=== PATIENT | male | born 1965 | race Caucasian/White ===

== ENCOUNTER 2016-03-09 21:45 | Inpatient (IN) ==
--- NOTE | 2016-03-09 22:09 | Emergency Department Note ---
Disposition Clinical Impression: Acute psychosis Disposition: Admitted As Inpatient Condition: Fair Psych HPI - General Chief Complaint: ED Psychiatric Symptoms Stated Complaint: Psych/SI Time Seen by Provider: 03/09/16 22:08 Source: patient, other Mode of arrival: ambulatory Limitations: altered mental status Nursing Notes Reviewed: Yes Vital Signs Reviewed: Yes - History of Present Illness HPI Narrative: As to the emergency department with complaints of suicidal ideation, hearing voices. He states that he "has a voice inside his head that he says is doing now,, he has been there for a very long time, and he has a little green man." He states "that when Duran talks to him excessively he eventually gets very angry and Duran's tells him to not only hurt himself but also to hurt other people." His mother is present she states that this is been ongoing since 1995 when he was incarcerated for 11 years in shelter and she would receive letters from him telling her about Duran and all the things that Duran was telling the patient today. He apparently has been on medication in the past that did seem to help the voice not talk to him as much, however he has not been on any psychiatric medications for the last 2-3 years. He states that he just was to get better but he also does not want stay in the hospital and he wants to go home. Mother is insistent that he stay here and get better, he does not live with her at this time. Does have a history of Pt complaint: suicidal ideation, feels depressed If medical clearance, reason: psychiatric condition Onset (ago): unknown Duration: changing over time, getting worse Improves with: medication Worsens with: none Context: recent drug abuse, not taking psychiatric medications Alleged intoxication: No Associated Psychiatric Symptoms: depression, suicidal ideation, homicidal ideation, auditory hallucinations Associated symptoms: Reports: denies other symptoms Traumatic symptoms: denies traumatic injury Treatments prior to arrival: none Self harm or harm to others: admits thoughts of self harm, denies having a plan - Related Data Previous Rx's Medication Instructions Recorded Amoxicillin 875 mg PO BID #20 tablet 03/02/16 Ibuprofen [Motrin] 800 mg PO Q8HR PRN #40 tablet 03/02/16 Ondansetron [Zofran] 8 mg PO TID PRN #10 tablet 03/02/16 Allergies Allergy/AdvReac Type Severity Reaction Status Date / Time codeine AdvReac Nausea Verified 03/09/16 21:48 All systems ED: reviewed and negative except as stated. Constitutional: Denies: fever, chills, weakness, weight change Eyes: Denies: eye pain, eye discharge, vision change ENT ED: Denies: ear pain, throat pain, dental pain, hearing loss, epistaxis, congestion, dysphagia Cardiovascular: Denies: chest pain, palpitations, dyspnea on exertion, edema, syncope Past Medical History - Past Medical History Medical history: Reports: asthma, seizures, other Surgical history: Reports: other Psychiatric history: Reports: anxiety, bipolar, depression, prior suicide attempt, schizophrenia, previous psychiatric hospitalization - Social History Smoking Status: Current every day smoker Smokeless Tobacco Status: No Alcohol use: Reports: none Drug use: Reports: marijuana Physical Exam - General Limitations: no limitations General appearance: alert - Head Head exam: atraumatic, normocephalic, normal inspection - Eye Eye exam: Present: normal appearance, PERRL, EOMI - ENT ENT exam: normal exam, normal oropharynx, mucous membranes moist - Neck Neck exam: Present: normal inspection, full ROM, trachea midline - Chest Chest inspection: Present: normal inspection, symmetric chest wall rise - Respiratory Respiratory exam: Present: normal lung sounds bilaterally - Cardiovascular Cardiovascular exam: Present: regular rate, normal rhythm, normal heart sounds - Abdominal Exam Abdominal exam: Present: soft, Non-Tender. Absent: tenderness, distention, guarding, rebound, rigidity - Extremities Exam Extremities exam: Present: normal inspection, full ROM. Absent: tenderness, pedal edema - Back Exam Back exam: Present: normal inspection, full ROM. Absent: tenderness - Neurological Exam Neurological exam: Present: alert, oriented X3 - Psychiatric Psychiatric exam: Present: depressed, suicidal ideation - Expanded Psychiatric Exam Expanded psych exam: Present: auditory hallucinations - Skin Skin exam: Present: warm, dry, intact, normal color Course - Reevaluation(s) Reevaluation #1: Report to Lisandra Howell PA-C he will assume care. Time: 06:23 Vital Signs Temperature 98.8 F 03/09/16 21:48 Pulse Rate 75 03/09/16 21:48 Respiratory Rate 20 03/09/16 21:48 Blood Pressure 146/79 03/09/16 21:48 O2 Sat by Pulse Oximetry 95 03/09/16 21:48 Temperature 99 F 03/12/16 08:16 Pulse Rate 93 03/12/16 08:16 Respiratory Rate 18 03/12/16 08:16 Blood Pressure 143/85 03/12/16 08:16 O2 Sat by Pulse Oximetry 97 03/10/16 05:41 Oxygen Delivery Oxygen Delivery Room Air Psych - Lab Data Result diagrams: 03/09/16 22:20 03/09/16 22:20 Lab Results 03/09/16 03/09/16 03/09/16 Range/Units 22:13 22:13 22:20 WBC 8.8 (4.3-11.1) K/mcL RBC 4.85 (4.19-5.50) M/mcL Hgb 15.2 (12.9-16.9) g/dL Hct 43.8 (37.5-50.1) % MCV 90.3 (83.0-100.0) fL MCH 31.3 (28.0-33.3) pg MCHC 34.7 (31.6-35.5) g/dL RDW 12.9 (11.5-14.5) % Plt Count 224 (140-400) K/mcL MPV 9.3 L (9.4-12.4) fL Immature Gran % 0.3 (0-4) % Seg Neutrophils % 74.3 % Lymphocytes % 15.3 % Monocytes % 7.1 % Eosinophils % 2.4 % Basophils % 0.6 % Neutrophils # 6.6 (1.6-8.9) K/mcL Lymphocytes # 1.4 (0.6-4.6) K/mcL Monocytes # 0.6 (0.0-1.3) K/mcL Eosinophils # 0.2 (0.0-0.6) K/mcL Basophils # 0.1 (0.0-0.2) K/mcL Sodium (136-145) mEq/L Potassium (3.5-4.5) mEq/L Chloride (98-109) mEq/L Carbon Dioxide (19-29) mEq/L BUN (8-26) mg/dL Creatinine (0.72-1.25) mg/dL Est GFR ( Amer) (> 60) Est GFR (Non-Af Amer) (> 60) BUN/Creatinine Ratio (6-26) Glucose (70-99) mg/dL Calculated Osmolality (280-300) Calcium (8.6-10.8) mg/dL Urine Color Yellow (Yellow) Urine Clarity Clear (Clear) Urine pH 5.5 (5.0-8.0) pH Units Ur Specific [place] 1.027 H (1.010-1.025) Urine Protein Negative (Neg-Trace) mg/dL Urine Glucose (UA) Normal (Normal) mg/dL Urine Ketones Negative (Negative) mg/dL Urine Blood Moderate H (Negative) Urine Nitrite Negative (Negative) Urine Bilirubin Negative (Negative) Urine Urobilinogen Normal (Normal) mg/dL Ur Leukocyte Esterase Negative (Negative) Urine Microscopic RBC 15-30 H (0-3) per hpf Urine Microscopic WBC 0-3 (0-3) per hpf Ur Squamous Epith Cells Moderate H (None-Few) per lpf Urine Bacteria None Seen (None-Few) per hpf Hyaline Casts None Seen (None-Few) per lpf Salicylates (15-30) mg/dL Urine Opiates Screen Negative (Jmkppq=391) ng/mL Acetaminophen (10-30) mcg/mL Ur Barbiturates Screen Negative (Vtrrdi=476) ng/mL Ur Phencyclidine Scrn Negative (Cutoff=25) ng/mL Ur Amphetamines Screen Negative (Olujvu=7789) ng/mL U Benzodiazepines Scrn Negative (Imxzrr=440) ng/mL Urine Cocaine Screen Negative (Cutoff= 300) ng/mL U Marijuana (THC) Screen Positive H (Cutoff = 50) ng/mL Ethyl Alcohol (0-10) mg/dL 03/09/16 Range/Units 22:20 WBC (4.3-11.1) K/mcL RBC (4.19-5.50) M/mcL Hgb (12.9-16.9) g/dL Hct (37.5-50.1) % MCV (83.0-100.0) fL MCH (28.0-33.3) pg MCHC (31.6-35.5) g/dL RDW (11.5-14.5) % Plt Count (140-400) K/mcL MPV (9.4-12.4) fL Immature Gran % (0-4) % Seg Neutrophils % % Lymphocytes % % Monocytes % % Eosinophils % % Basophils % % Neutrophils # (1.6-8.9) K/mcL Lymphocytes # (0.6-4.6) K/mcL Monocytes # (0.0-1.3) K/mcL Eosinophils # (0.0-0.6) K/mcL Basophils # (0.0-0.2) K/mcL Sodium 138 (136-145) mEq/L Potassium 4.0 (3.5-4.5) mEq/L Chloride 109 (98-109) mEq/L Carbon Dioxide 20 (19-29) mEq/L BUN 12 (8-26) mg/dL Creatinine 0.82 (0.72-1.25) mg/dL Est GFR ( Amer) > 60 (> 60) Est GFR (Non-Af Amer) > 60 (> 60) BUN/Creatinine Ratio 15 (6-26) Glucose 115 H (70-99) mg/dL Calculated Osmolality 287 (280-300) Calcium 8.7 (8.6-10.8) mg/dL Urine Color (Yellow) Urine Clarity (Clear) Urine pH (5.0-8.0) pH Units Ur Specific [place] (1.010-1.025) Urine Protein (Neg-Trace) mg/dL Urine Glucose (UA) (Normal) mg/dL Urine Ketones (Negative) mg/dL Urine Blood (Negative) Urine Nitrite (Negative) Urine Bilirubin (Negative) Urine Urobilinogen (Normal) mg/dL Ur Leukocyte Esterase (Negative) Urine Microscopic RBC (0-3) per hpf Urine Microscopic WBC (0-3) per hpf Ur Squamous Epith Cells (None-Few) per lpf Urine Bacteria (None-Few) per hpf Hyaline Casts (None-Few) per lpf Salicylates < 5.0 L (15-30) mg/dL Urine Opiates Screen (Avdlhn=086) ng/mL Acetaminophen < 1.0 L (10-30) mcg/mL Ur Barbiturates Screen (Ecpfne=201) ng/mL Ur Phencyclidine Scrn (Cutoff=25) ng/mL Ur Amphetamines Screen (Lkmzna=0901) ng/mL U Benzodiazepines Scrn (Ybrwno=889) ng/mL Urine Cocaine Screen (Cutoff= 300) ng/mL U Marijuana (THC) Screen (Cutoff = 50) ng/mL Ethyl Alcohol < 10 (0-10) mg/dL Psychiatric Medical Clearance - Medical Clearance Checklist Does the patient have a NEW psychiatric condition?: No Any abnormalities indicating possible medical illness?: No Any history of medical issues?: No Medical History: No Social History Section defined Any abnormal vital signs prior to transfer?: No Current Vitals: Last Vital Signs Temp 99 F 03/12/16 08:16 Pulse 93 03/12/16 08:16 Resp 18 03/12/16 08:16 BP 143/85 03/12/16 08:16 Pulse Ox 97 03/10/16 05:41 Is the patient intoxicated or cognitively impaired?: No Any abnormalities on the physical exam?: No Any abnormal labs?: No Abnormal Labs: Abnormal lab results MPV 9.3 fL (9.4-12.4) L 03/09/16 22:20 Glucose 115 mg/dL (70-99) H 03/09/16 22:20 Ur Specific [place] 1.027 (1.010-1.025) H 03/09/16 22:13 Urine Blood Moderate (Negative) H 03/09/16 22:13 Urine Microscopic RBC 15-30 per hpf (0-3) H 03/09/16 22:13 Ur Squamous Epith Cells Moderate per lpf (None-Few) H 03/09/16 22:13 Salicylates < 5.0 mg/dL (15-30) L 03/09/16 22:20 Acetaminophen < 1.0 mcg/mL (10-30) L 03/09/16 22:20 U Marijuana (THC) Screen Positive ng/mL (Cutoff = 50) H 03/09/16 22:13 Does the patient require durable medical equiptment?: No Is the patient ambulatory?: Yes Is the patient a fall risk?: No Has the patient been medically cleared?: Yes Any acute medical condition require Tx prior to transfer?: No Statement of Medical Clearance: I have evaluated the patient, reviewed diagnostic information, and certify that the patient's medical condition is sufficiently stable that transfer to the psychiatric unit does not pose a significant risk of deterioration. Alicia - Alicia Background: Presenting Complaint, Relevant PMH, Meds, & Allergies Assessment: Vital Signs, Course and respsone to treatment, Exam Concerns, Patient/Family Expectation S.B.AManish Report Given to: CLARITA Barrios Repor Time: 06:24 Attestation Statement - Attestation Attestation: I, Arron Rowley MD, personally performed a history and physical exam of the patient and discussed their management with the midlevel provicer, PAC/OBJECT ORIENTED DEVELOPER. I reviewed the midlevel provider's note and agree with the documented findings, medical decision making, and plan of care. 50-year-old male presenting to the emergency department with a complaint of suicidal ideations. He also complains of auditory hallucinations. This is a chronic problem but acutely worse. On examination patient is a well-developed well-nourished male in no acute distress. He is alert and oriented. There is no cyanosis or diaphoresis. Breath sounds are clear and equal bilaterally. Heart regular rate and rhythm. Abdomen soft and nontender with normal bowel sounds. No gross focal neurological deficits. Labs reviewed and patient medically cleared for psychiatric evaluation. Patient was evaluated by the [address] psych service and they are working on bed placement for this patient as they currently have no beds at this facility.
[2016-03-09 22:27] LABS: Basophils # 0.1 K/mcL (0.0-0.2); Basophils % 0.6 %; Eosinophils # 0.2 K/mcL (0.0-0.6); Eosinophils % 2.4 %; Hematocrit 43.8 % (37.5-50.1); Hemoglobin 15.2 g/dL (12.9-16.9); Immature Granulocytes % 0.3 % (0-4); Lymphocytes # 1.4 K/mcL (0.6-4.6); Lymphocytes % 15.3 %; Mean Corpuscular HGB Conc 34.7 g/dL (31.6-35.5); Mean Corpuscular Hemoglobin 31.3 pg (28.0-33.3); Mean Corpuscular Volume 90.3 fL (83.0-100.0); Mean Platelet Volume 9.3 fL (9.4-12.4); Monocytes # 0.6 K/mcL (0.0-1.3); Monocytes % 7.1 %; Neutrophils # 6.6 K/mcL (1.6-8.9); Platelet Count 224 K/mcL (140-400); Red Blood Count 4.85 M/mcL (4.19-5.50); Red Cell Distribution Width 12.9 % (11.5-14.5); Segmented Neutrophils % 74.3 %
[2016-03-09 22:30] LABS: Bilirubin,Urine Negative (Negative); Blood,Urine Moderate (Negative); Clarity,Urine Clear (Clear); Color,Urine Yellow (Yellow); Glucose,Urine (UA) Normal (Normal); Ketones,Urine Negative (Negative); Leukocyte Esterase,Urine Negative (Negative); Nitrite,Urine Negative (Negative); PH,Urine 5.5 pH Units (5.0-8.0); Protein,Urine Negative (Neg-Trace); Specific Gravity,Urine 1.027 (1.010-1.025); Urobilinogen,Urine Normal (Normal)
[2016-03-09 22:32] LABS: Bacteria,Urine None Seen per hpf (None-Few); Hyaline Casts,Urine None Seen per lpf (None-Few); RBC,Urine 15-30 per hpf (0-3); Squamous Epithelial Cell,Urine Moderate per lpf (None-Few); WBC,Urine 0-3 per hpf (0-3)
[2016-03-09 22:33] LABS: Amphetamine Screen,Urine Negative ng/mL (Cutoff=1000); Barbiturate Screen,Urine Negative ng/mL (Cutoff=200); Benzodiazepines Screen,Urine Negative ng/mL (Cutoff=200); Cannabinoid Screen,Urine Positive ng/mL (Cutoff = 50); Cocaine Screen,Urine Negative ng/mL (Cutoff= 300); Opiate Screen,Urine Negative ng/mL (Cutoff=300); Phencyclidine Screen,Urine Negative ng/mL (Cutoff=25)
[2016-03-09 22:41] LABS: BUN/Creatinine Ratio 15 (6-26); Blood Urea Nitrogen 12 mg/dL (8-26); Calcium 8.7 mg/dL (8.6-10.8); Carbon Dioxide 20 mEq/L (19-29); Chloride 109 mEq/L (98-109); Glucose 115 mg/dL (70-99); Osmolality,Calculated 287 (280-300); Sodium 138 mEq/L (136-145); eGFR For African Americans > 60 (> 60); eGFR For Non-African Americans > 60 (> 60)
[2016-03-09 22:42] LABS: Acetaminophen < 1.0 mcg/mL (10-30); Ethanol < 10 mg/dL (0-10); Salicylate < 5.0 mg/dL (15-30)
[2016-03-10] MEDS ORDERED: Ibuprofen 600 MG TABLET PO ONE ×2 (04:03→08:11)
[2016-03-10] MEDS ORDERED: *HR* LORazepam 0.5 MG TABLET PO ONE (04:04)
[2016-03-10] MEDS ORDERED: Nicotine 7 MG PATCH.TD24 TD STA (04:14)
[2016-03-10] MEDS ORDERED: *HR* LORazepam 1 MG TABLET PO ONE ×3 (04:43→12:13)
--- NOTE | 2016-03-10 08:16 | Emergency Department Note ---
Disposition Clinical Impression: Acute psychosis Disposition: Admitted As Inpatient Condition: Fair Time of Disposition: 12:15 Psych HPI - General Chief Complaint: ED Psychiatric Symptoms Stated Complaint: Psych/SI Time Seen by Provider: 03/10/16 08:11 Source: patient, other Mode of arrival: ambulatory Limitations: no limitations Nursing Notes Reviewed: Yes Vital Signs Reviewed: Yes - History of Present Illness Duration: changing over time, getting worse Improves with: medication Worsens with: none Associated symptoms: Reports: denies other symptoms Treatments prior to arrival: none - Related Data Previous Rx's Medication Instructions Recorded Amoxicillin 875 mg PO BID #20 tablet 03/02/16 Ibuprofen [Motrin] 800 mg PO Q8HR PRN #40 tablet 03/02/16 Ondansetron [Zofran] 8 mg PO TID PRN #10 tablet 03/02/16 Allergies Allergy/AdvReac Type Severity Reaction Status Date / Time codeine AdvReac Nausea Verified 03/09/16 21:48 Constitutional: Denies: fever, chills, weakness, weight change Eyes: Denies: eye pain, eye discharge, vision change ENT ED: Denies: ear pain, throat pain, dental pain, hearing loss, epistaxis, congestion, dysphagia Cardiovascular: Denies: chest pain, palpitations, dyspnea on exertion, edema, syncope Past Medical History - Past Medical History Medical history: Reports: asthma, seizures, other Surgical history: Reports: other Psychiatric history: Reports: anxiety, bipolar, depression, prior suicide attempt, schizophrenia, previous psychiatric hospitalization - Social History Smoking Status: Current every day smoker Smokeless Tobacco Status: No Alcohol use: Reports: none Drug use: Reports: marijuana Physical Exam - General Limitations: no limitations General appearance: alert Course Course Narrative: Patient was admitted here for psychiatric observation. 1430 - Reevaluation(s) Reevaluation #1: Patient currently resting comfortably. Awaiting placement. Patient is requesting ibuprofen for pain. Medication has been ordered. Time: 08:15 Vital Signs Temperature 98.8 F 03/09/16 21:48 Pulse Rate 75 03/09/16 21:48 Respiratory Rate 20 03/09/16 21:48 Blood Pressure 146/79 03/09/16 21:48 O2 Sat by Pulse Oximetry 95 03/09/16 21:48 Temperature 97.4 F L 03/10/16 21:00 Pulse Rate 85 03/10/16 21:00 Respiratory Rate 18 03/10/16 21:00 Blood Pressure 133/82 03/10/16 21:00 O2 Sat by Pulse Oximetry 97 03/10/16 05:41 Oxygen Delivery Oxygen Delivery Room Air Psych - Lab Data Result diagrams: 03/09/16 22:20 03/09/16 22:20 Lab Results 03/09/16 03/09/16 03/09/16 Range/Units 22:13 22:13 22:20 WBC 8.8 (4.3-11.1) K/mcL RBC 4.85 (4.19-5.50) M/mcL Hgb 15.2 (12.9-16.9) g/dL Hct 43.8 (37.5-50.1) % MCV 90.3 (83.0-100.0) fL MCH 31.3 (28.0-33.3) pg MCHC 34.7 (31.6-35.5) g/dL RDW 12.9 (11.5-14.5) % Plt Count 224 (140-400) K/mcL MPV 9.3 L (9.4-12.4) fL Immature Gran % 0.3 (0-4) % Seg Neutrophils % 74.3 % Lymphocytes % 15.3 % Monocytes % 7.1 % Eosinophils % 2.4 % Basophils % 0.6 % Neutrophils # 6.6 (1.6-8.9) K/mcL Lymphocytes # 1.4 (0.6-4.6) K/mcL Monocytes # 0.6 (0.0-1.3) K/mcL Eosinophils # 0.2 (0.0-0.6) K/mcL Basophils # 0.1 (0.0-0.2) K/mcL Sodium (136-145) mEq/L Potassium (3.5-4.5) mEq/L Chloride (98-109) mEq/L Carbon Dioxide (19-29) mEq/L BUN (8-26) mg/dL Creatinine (0.72-1.25) mg/dL Est GFR ( Amer) (> 60) Est GFR (Non-Af Amer) (> 60) BUN/Creatinine Ratio (6-26) Glucose (70-99) mg/dL Calculated Osmolality (280-300) Calcium (8.6-10.8) mg/dL Urine Color Yellow (Yellow) Urine Clarity Clear (Clear) Urine pH 5.5 (5.0-8.0) pH Units Ur Specific [place] 1.027 H (1.010-1.025) Urine Protein Negative (Neg-Trace) mg/dL Urine Glucose (UA) Normal (Normal) mg/dL Urine Ketones Negative (Negative) mg/dL Urine Blood Moderate H (Negative) Urine Nitrite Negative (Negative) Urine Bilirubin Negative (Negative) Urine Urobilinogen Normal (Normal) mg/dL Ur Leukocyte Esterase Negative (Negative) Urine Microscopic RBC 15-30 H (0-3) per hpf Urine Microscopic WBC 0-3 (0-3) per hpf Ur Squamous Epith Cells Moderate H (None-Few) per lpf Urine Bacteria None Seen (None-Few) per hpf Hyaline Casts None Seen (None-Few) per lpf Salicylates (15-30) mg/dL Urine Opiates Screen Negative (Sjrsfx=102) ng/mL Acetaminophen (10-30) mcg/mL Ur Barbiturates Screen Negative (Kvdorp=398) ng/mL Ur Phencyclidine Scrn Negative (Cutoff=25) ng/mL Ur Amphetamines Screen Negative (Ttnbws=8684) ng/mL U Benzodiazepines Scrn Negative (Ckckmd=368) ng/mL Urine Cocaine Screen Negative (Cutoff= 300) ng/mL U Marijuana (THC) Screen Positive H (Cutoff = 50) ng/mL Ethyl Alcohol (0-10) mg/dL 03/09/16 Range/Units 22:20 WBC (4.3-11.1) K/mcL RBC (4.19-5.50) M/mcL Hgb (12.9-16.9) g/dL Hct (37.5-50.1) % MCV (83.0-100.0) fL MCH (28.0-33.3) pg MCHC (31.6-35.5) g/dL RDW (11.5-14.5) % Plt Count (140-400) K/mcL MPV (9.4-12.4) fL Immature Gran % (0-4) % Seg Neutrophils % % Lymphocytes % % Monocytes % % Eosinophils % % Basophils % % Neutrophils # (1.6-8.9) K/mcL Lymphocytes # (0.6-4.6) K/mcL Monocytes # (0.0-1.3) K/mcL Eosinophils # (0.0-0.6) K/mcL Basophils # (0.0-0.2) K/mcL Sodium 138 (136-145) mEq/L Potassium 4.0 (3.5-4.5) mEq/L Chloride 109 (98-109) mEq/L Carbon Dioxide 20 (19-29) mEq/L BUN 12 (8-26) mg/dL Creatinine 0.82 (0.72-1.25) mg/dL Est GFR ( Amer) > 60 (> 60) Est GFR (Non-Af Amer) > 60 (> 60) BUN/Creatinine Ratio 15 (6-26) Glucose 115 H (70-99) mg/dL Calculated Osmolality 287 (280-300) Calcium 8.7 (8.6-10.8) mg/dL Urine Color (Yellow) Urine Clarity (Clear) Urine pH (5.0-8.0) pH Units Ur Specific [place] (1.010-1.025) Urine Protein (Neg-Trace) mg/dL Urine Glucose (UA) (Normal) mg/dL Urine Ketones (Negative) mg/dL Urine Blood (Negative) Urine Nitrite (Negative) Urine Bilirubin (Negative) Urine Urobilinogen (Normal) mg/dL Ur Leukocyte Esterase (Negative) Urine Microscopic RBC (0-3) per hpf Urine Microscopic WBC (0-3) per hpf Ur Squamous Epith Cells (None-Few) per lpf Urine Bacteria (None-Few) per hpf Hyaline Casts (None-Few) per lpf Salicylates < 5.0 L (15-30) mg/dL Urine Opiates Screen (Odbayl=211) ng/mL Acetaminophen < 1.0 L (10-30) mcg/mL Ur Barbiturates Screen (Lopuis=180) ng/mL Ur Phencyclidine Scrn (Cutoff=25) ng/mL Ur Amphetamines Screen (Azbkuc=6544) ng/mL U Benzodiazepines Scrn (Dankxp=160) ng/mL Urine Cocaine Screen (Cutoff= 300) ng/mL U Marijuana (THC) Screen (Cutoff = 50) ng/mL Ethyl Alcohol < 10 (0-10) mg/dL Psychiatric Medical Clearance - Medical Clearance Checklist Medical History: No Social History Section defined Current Vitals: Last Vital Signs Temp 97.4 F L 03/10/16 21:00 Pulse 85 03/10/16 21:00 Resp 18 03/10/16 21:00 BP 133/82 03/10/16 21:00 Pulse Ox 97 03/10/16 05:41 Abnormal Labs: Abnormal lab results MPV 9.3 fL (9.4-12.4) L 03/09/16 22:20 Glucose 115 mg/dL (70-99) H 03/09/16 22:20 Ur Specific [place] 1.027 (1.010-1.025) H 03/09/16 22:13 Urine Blood Moderate (Negative) H 03/09/16 22:13 Urine Microscopic RBC 15-30 per hpf (0-3) H 03/09/16 22:13 Ur Squamous Epith Cells Moderate per lpf (None-Few) H 03/09/16 22:13 Salicylates < 5.0 mg/dL (15-30) L 03/09/16 22:20 Acetaminophen < 1.0 mcg/mL (10-30) L 03/09/16 22:20 U Marijuana (THC) Screen Positive ng/mL (Cutoff = 50) H 03/09/16 22:13 Attestation Statement - Attestation Attestation: IArron MD, personally performed a history and physical exam of the patient and discussed their management with the midlevel provicer, PAC/RACK WORKER. I reviewed the midlevel provider's note and agree with the documented findings, medical decision making, and plan of care. Arron Rivas MD, personally performed a history and physical exam of the patient and discussed their management with the midlevel provicer, PAC/RACK WORKER. I reviewed the midlevel provider's note and agree with the documented findings, medical decision making, and plan of care. 50-year-old male presenting to the emergency department with a complaint of suicidal ideations. He also complains of auditory hallucinations. This is a chronic problem but acutely worse. On examination patient is a well-developed well-nourished male in no acute distress. He is alert and oriented. There is no cyanosis or diaphoresis. Breath sounds are clear and equal bilaterally. Heart regular rate and rhythm. Abdomen soft and nontender with normal bowel sounds. No gross focal neurological deficits. Labs reviewed and patient medically cleared for psychiatric evaluation. Patient was evaluated by the [address] service and they are working on bed placement for this patient as they currently have no beds at this facility.
[2016-03-10] MEDS ORDERED: Nicotine 7 MG PATCH.TD24 TD SCH (09:00)
[2016-03-10] MEDS ORDERED: Nicotine 21 MG PATCH.TD24 TD SCH (11:30)
[2016-03-10] MEDS ORDERED: Nicotine 21 MG PATCH.TD24 TD STA (11:53)
[2016-03-10] MEDS ORDERED: Gabapentin 300 MG CAPSULE PO ONE (12:17)
[2016-03-10] MEDS ORDERED: hydrOXYzine pamoate 25 MG CAPSULE PO PRN (15:32)
[2016-03-10] MEDS ORDERED: Haloperidol Lactate 5 MG/ML VIAL IM PRN (15:32)
[2016-03-10] MEDS ORDERED: *HR* LORazepam 2 MG/ML VIAL IM PRN (15:32)
[2016-03-10] MEDS ORDERED: *HR* LORazepam 1 MG TABLET PO PRN (15:32)
[2016-03-10] MEDS ORDERED: traZODone 50 MG TABLET PO PRN (15:32)
[2016-03-10] MEDS ORDERED: Ondansetron ODT 4 MG TAB.RAPDIS PO PRN (15:36)
[2016-03-10] MEDS: AMOXICILLIN 875 MG PO SCH (20:56)
[2016-03-10] MEDS: lamoTRIgine 100 MG TABLET PO SCH (20:57)
[2016-03-11] MEDS: Nicotine 21 MG PATCH.TD24 TD SCH (08:55)
[2016-03-11] MEDS: lamoTRIgine 100 MG TABLET PO SCH ×2 (08:55→20:26)
[2016-03-11] MEDS: AMOXICILLIN 875 MG PO SCH ×2 (08:56→20:27)
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
[2016-03-12] MEDS: Nicotine 21 MG PATCH.TD24 TD SCH (08:35)
[2016-03-12] MEDS: lamoTRIgine 100 MG TABLET PO SCH ×2 (08:36→22:03)
[2016-03-12] MEDS: Amoxicillin 500 MG CAPSULE PO SCH ×2 (08:36→22:03)
--- NOTE | 2016-03-12 11:03 | Psychiatry Progress Note ---
Date of Encounter: 03/12/16 Time of Encounter: 11:09 Subjective Interval history: Patient is here for follow-up. Mihir reports he has been cooperative and compliant with medication he was started on Seroquel in addition to Lamictal he slept well last night and feeling much better. He reports voices are very weak and infrequent. 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 Denies suicidal ideation. Review of Systems Psychiatric: Reports: suicidal ideation, visual hallucinations Objective: Exam Patient orientation: Yes Person, Yes Time, Yes Place Level of alertness: Sedated Patient appearance: Appropriate, Well Groomed Behavior: calm, cooperative, nervous Eye contact: Maintains Eye Contact Mood description: Depressed, Anxious Affect description: blunted, flat, dysphoric, anxious Speech pattern: Normal rate, Clear, Coherent, Limited Speech volume: Normal Thought process: Logical, Linear, Goal Oriented Thought content: Yes Suicidal ideation, Yes Ideas of reference, Yes Preoccupation Perceptual disturbances: Yes Auditory hallucinations, Yes Visual hallucinations Judgment: Fair Insight: Minimal Results - Vital Signs Vital Signs: Temp Pulse Resp BP Pulse Ox 99 F 93 18 143/85 97 03/12/16 08:16 03/12/16 08:16 03/12/16 08:16 03/12/16 08:16 03/10/16 05:41 Assessment and Plan (1) Acute psychosis Current visit: Yes Status: Acute Plan: Continue hospitalization, Close observation, Suicide Precautions per unit protocol, Encourage participation in unit milieu, Group Therapy, Monitor sleep, Monitor appetite Risks, benefits, side effects, alternatives discussed w/pt: Yes Patient agreeable to treatment: Yes Consult Discharge Plan - Plan Referrals: NO,PCP [Primary Care Provider] -
[2016-03-12] MEDS: Ibuprofen 800 MG TABLET PO PRN (11:19)
[2016-03-13] MEDS: Nicotine 21 MG PATCH.TD24 TD SCH (08:23)
[2016-03-13] MEDS: lamoTRIgine 100 MG TABLET PO SCH ×2 (08:24→20:42)
[2016-03-13] MEDS: Amoxicillin 500 MG CAPSULE PO SCH ×2 (08:24→20:42)
--- NOTE | 2016-03-13 15:57 | Psychiatry Progress Note ---
Date of Encounter: 03/13/16 Time of Encounter: 15:54 Subjective Interval history: Patient seen for follow-up. Staff report he is compliant with medication not agitated and anxious to go home. community center worker is looking into his discharge plans and contacting the family. Review of Systems Psychiatric: Reports: suicidal ideation, visual hallucinations Objective: Exam Patient orientation: Yes Person, Yes Time, Yes Place Level of alertness: Sedated Patient appearance: Appropriate, Well Groomed Behavior: calm, cooperative, nervous Psychomotor activity: Slowed Eye contact: Maintains Eye Contact Mood description: Depressed, Anxious Affect description: blunted, flat, dysphoric, anxious Speech pattern: Normal rate, Clear, Coherent, Limited Speech volume: Normal Thought process: Logical, Linear, Goal Oriented Thought content: Yes Suicidal ideation, Yes Ideas of reference, Yes Preoccupation Perceptual disturbances: Yes Auditory hallucinations, Yes Visual hallucinations Judgment: Fair Insight: Minimal Results - Vital Signs Vital Signs: Temp Pulse Resp BP Pulse Ox 99.2 F 98 18 132/87 97 03/13/16 09:00 03/13/16 09:00 03/13/16 09:00 03/13/16 09:00 03/10/16 05:41 Assessment and Plan (1) Acute psychosis Current visit: Yes Status: Acute Plan: Continue hospitalization, Close observation, Suicide Precautions per unit protocol, Encourage participation in unit milieu, Group Therapy, Monitor sleep, Monitor appetite Risks, benefits, side effects, alternatives discussed w/pt: Yes Patient agreeable to treatment: Yes Consult Discharge Plan - Plan Referrals: [facility] [Outside] - 03/27/16 1:00 pm (The above appointment is with Monik Sabillon. When you come to your first appointment, you will have an orientation to the agency and you will meet with a counselor. Please bring the following with you to your first visit to the clinic: 1) proof of household income (two consecutive pay stubs, social security award letter, bank statement, statement letter from [facility], child support statement, IRS 1040 or W2 form, or a statement from the person who financially supports you stating they help provide for your basic needs), 2) proof of residency (drivers license , a piece of mail showing your address, a statement from person you live with verifying you live at their address), 3) your social security number, and 4) your insurance card (if you have commercial insurance you must call to obtain a prior authorization number before you arrive to your first appointment). If you do not bring these items, you will not be seen.) Shay Vadlez PAC [Physician Field Gauger] - 03/22/16 11:15 am (The above appointment is with MIKY Pimentel at [facility]. This appointment is to establish you with a primary care provider. If you have needs related to psychiatric medication and/or Vivitrol, you will be assessed for these as well. Please arrive 15 minutes early to complete paperwork. Please bring your insurance card, photo ID and list of current medications to your first appointment. [facility] Transportation services will provide your transportation to and from this appointment.)
[2016-03-14] MEDS: Ibuprofen 800 MG TABLET PO PRN (06:29)
[2016-03-14] MEDS: lamoTRIgine 100 MG TABLET PO SCH (08:36)
[2016-03-14] MEDS: Nicotine 21 MG PATCH.TD24 TD SCH (08:36)
[2016-03-14] MEDS: Amoxicillin 500 MG CAPSULE PO SCH (08:37)
[2016-03-14 09:13] VITALS: BP 124/82
--- NOTE | 2016-03-14 12:37 | Discharge Summary ---
Date of Encounter: 03/14/16 Time of Encounter: 12:25 Diagnosis - Discharge Diagnosis (1) Acute psychosis Status: Acute Medications - Discharge Medications Prescriptions: Quetiapine Fumarate [Seroquel] 100 mg PO HS #30 tablet Amoxicillin 875 mg PO BID #20 tablet 03/02/16 [Rx] Ibuprofen [Motrin] 800 mg PO Q8HR PRN #40 tablet 03/02/16 [Rx] Lamotrigine [Lamictal] 200 mg PO BID tablet 03/14/16 [Rx] Quetiapine Fumarate [Seroquel] 100 mg PO HS #30 tablet 03/14/16 [Rx] Allergies codeine Adverse Reaction (Verified 03/09/16 21:48) Nausea Provider Date of admission: 03/10/16 14:15 Primary care physician: PCP NO Assessment and Plan - Patient/Caregiver Discharge Instructions Activity: resume usual activities as tolerated Diet: regular diet - Follow up Plan Follow up with: [facility] [Outside] - 03/27/16 1:00 pm (The above appointment is with Monik Sabillon. When you come to your first appointment, you will have an orientation to the agency and you will meet with a counselor. Please bring the following with you to your first visit to the clinic: 1) proof of household income (two consecutive pay stubs, social security award letter, bank statement, statement letter from [facility], child support statement, IRS 1040 or W2 form, or a statement from the person who financially supports you stating they help provide for your basic needs), 2) proof of residency (drivers license , a piece of mail showing your address, a statement from person you live with verifying you live at their address), 3) your social security number, and 4) your insurance card (if you have commercial insurance you must call to obtain a prior authorization number before you arrive to your first appointment). If you do not bring these items, you will not be seen.) Shay Valdez PAC [Physician Licensed Architect] - 03/22/16 11:15 am (The above appointment is with MIKY Pimentel at [facility]. This appointment is to establish you with a primary care provider. If you have needs related to psychiatric medication and/or Vivitrol, you will be assessed for these as well. Please arrive 15 minutes early to complete paperwork. Please bring your insurance card, photo ID and list of current medications to your first appointment. [facility] Transportation services will provide your transportation to and from this appointment.) Functional capacity at discharge: independent ambulation Overall status at discharge: Stable Disposition: Home, Self-Care Hospital Course Hospital course: Mr. Caro is a 50 year old male who reports to me today "I am doing great". Patient states that the change in medications has helped a lot. Especially the Seroquel. He states that Seroquel has helped stabilize his mood and his sleep is much better. "I know I am doing better cause I'm eating, talking to people and getting good sleep". He denies any suicidal/homicidal ideation. He denies any auditory or visual hallucinations with the additional Seroquel. He denies any side effects of the medications. He states he wants to go home and get back to work. He has been attending groups and socializing appropriately on the unit. His mood is stable. He denies any depression or anxiety except is a little nervous to be discharged. He has a history of noncompliance of medications which we discussed. He said his [id number] will be managing his medications when he gets home and that he will be taking them regularly if she is in charge of them. Time spent discussing smoking cessation with patient: 3 to 10 minutes Does patient wish to continue nicotine replacement upon disc: Yes - Time Spent with Patient Total time spent providing and/or coordinating discharge services: 25 min Quality - Multiple Antipsychotics Patient discharged on 2 or more antipsychotic medications: No Procedures - Procedures Procedures: Medication Management Mental Status Exam - Mental Status Exam Patient orientation: Yes Person, Yes Time, Yes Place Level of alertness: Alert Patient appearance: Appropriate, Well Groomed Behavior: calm, cooperative Psychomotor activity: Normal Eye contact: Maintains Eye Contact Mood description: Anxious (mildly anxious to discharge) Affect description: congruent with mood Speech pattern: Normal rate, Clear, Coherent Speech Volume: Normal Thought process: Logical, Linear, Goal Oriented Thought Content: Yes Intact Judgment: Fair Insight: Partial
== END 2016-03-14 13:15 | disposition home or self-care (01) | DRG 751 ==
LOC: EMEROO 21:45 → 1ANU 03-10 14:15
PROVIDERS: ADMIT Psychiatry & Neurology Psychiatry; ATTEND Psychiatry & Neurology Psychiatry